=== PATIENT | female | born 1980 | race Asian ===

== ENCOUNTER 2019-03-20 11:05 | Inpatient (IN) | payer OTHER ==
[2019-03-20 12:11] LABS: BASO % 0.2 % (0-2.0); EOS % 0.2 % (0-4.5); HEMATOCRIT 34.2 % (32.4-45.2); HEMOGLOBIN 11.4 GM/dL (10.7-15.3); LYMPH % 10.2 % (8-40); MCH 26.3 pg (25.7-33.7); MCHC 33.3 g/dl (32.0-36.0); MEAN CELL VOLUME 79.2 fl (80-96); MEAN PLT VOLUME 8.7 fl (7.5-11.1); MONO % 5.9 % (3.8-10.2); NEUT % 83.5 % (42.8-82.8); PLATELET COUNT 170 K/MM3 (134-434); RBC 4.33 M/mm3 (3.60-5.2); WHITE BLOOD COUNT 9.2 K/mm3 (4.0-10.0)
[2019-03-20 12:29] LABS: INR 0.91 (0.83-1.09); PROTHROMBIN TIME (PATIENT) 10.7 SEC (9.7-13.0)
[2019-03-20] MEDS: ELECTROLYTE-148 SOLN 1,000 ML IV SCH (12:30)
[2019-03-20 12:32] LABS: ACTIVATED PTT 28.1 SECONDS (25.2-36.5)
[2019-03-20 12:42] LABS: BLOOD UREA NITROGEN 10.2 mg/dL (7-18); CALCIUM 8.5 mg/dL (8.5-10.1); CREATININE 0.5 mg/dL (0.55-1.3)
[2019-03-20] MEDS ORDERED: FENTANYL/BUPIVACAINE/NS/PF - PCEA - 50 ML DISP.SYRIN EP ONE ×3 (12:48→21:07)
[2019-03-20 13:43] VITALS: BMI 20.7
[2019-03-20] MEDS ORDERED: FENTANYL/BUPIVACAINE/NS/PF - PCEA - 50 ML DISP.SYRIN EP SCH (13:45)
[2019-03-20] MEDS ORDERED: NALOXONE HCL 0.4 MG/ML VIAL IVPUSH PRN (13:45)
--- NOTE | 2019-03-20 14:43 | HP ---
Past Medical History - Admission Chief Complaint: labor pain History of Present Illness: none History Source: Patient Limitations to Obtaining History: No Limitations - Past Medical History ORANGE GROWER: No: Alzheimer's, CVA, Dementia, Migraine, Multiple Sclerosis, Peripheral Neuropathy, Parkinson's, Seizure, Syncope, TIA, Vertigo, Other Cardiovascular: No: AFIB, Aneurysm, Aortic Insufficiency, Aortic Stenosis, CAD, CHF, Deep Vein Thrombosis, HTN, Hyperlipdemia, OR, Mitral Insufficiency, Mitral Stenosis, Murmur, Pulmonary Hypertension, Other Pulmonary: No: Asthma, Bronchitis, Cancer, COPD, O2 Dependent, Pneumonia, Previously Intubated, Pulmonary Embolus, Pulmonary Fibrosis, Sleep Apnea, Other Gastrointestinal: No: Ascites, Cancer, Constipation, Crohn's Disease, Diverticulitis, Diverticulosis, Esophageal Varices, Gastritis, GERD, GI Bleed, Hemorrhoids, Hiatal Hernia, Inflamatory Bowel Disease, Irritable Bowel Disease, Pancreatitis, Peptic Ulcer Disease, Ulcerative Colitis, Other Hepatobiliary: No: Cirrhosis, Cholelithiasis, Cholecystitis, Choledocholithiasis , Hepatitis A, Hepatitis B, Hepatitis C, Other Renal/: No: Renal Failure, Renal Inusuff, BPH, Cancer, Hematuria, Hemodialysis , Neurogenic Bladder, Renal Calculi, UTI, Other Reproductive: No: Ectopic , Endometriosis, Fibroids, PID, Polycystic Ovary Syndrome, Postmenopausal, Other ...: 1 ...Para: 0 ...Term: 0 ...: 0 ...Spon : 0 ...Induced : 0 ...Multiple Gestation: 0 ... Weeks Gestation by Dates: 40 ...EDC by Andrew: 03/20/19 Heme/Onc: No: Anemia, B12 Deficiency, Bleeding Disorder, Cancer, Current Chemotherapy, Current Radiation Therapy, Hemochromatosis, Hypercoaguable State, Myeloproliferative Synd, Sickle Cell Disease, Sickle Cell Trait, Thrombocytopenia, Other Infectious Disease: No: AIDS, C-Diff, Herpes Zoster, HIV, MRSA, STD's, Tuberculosis, VREF, Other Psych: No: Addictions, Anxiety, Bipolar, Depression, Panic, Psychosis, Schizophrenia, Other Musculoskeletal: No: Bursitis, Chronic low back pain, Hemiparesis, Hemiplegia, Osteoarthritis, Paraplegia, Other Rheumatology: No: Fibromyalgia, Gout, Lupus, Rheumatoid Arthritis, Sarcoidosis, Vasculitis, Other ENT: No: Allergic Rhinitis, Sinusitis, Other Endocrine: No: Sergey's Disease, Tianna's Disease, Diabetes Insipidus, Diabetes Mellitus, Hyperparathyroidism, Hyperthyroidism, Hypothyroidism, Osteopenia, SIADH, Other Dermatology: No: Basal Cell, Cellulitis, Eczema, Melanoma, Psoriasis, Squamous Cell, Other - Past Surgical History Past Surgical History: No: None, AAA Repair, AICD, Amputation, Appendectomy, Arthrosocopy, AV Fistula/Graft, Bariatric Surgery, Breast Biopsy, Bypass, CABG, Carotid Endarterectomy, Cataract Removal, Cholecystectomy, Colectomy, Colonoscopy, Colostomy, Craniotomy, , Cystectomy, Hernia Repair, Hysterectomy, Ileal Conduit, Ileosotomy, Joint Replacement, Kidney Transplant, Laminectomy, Liver Transplant, Mastectomy, Nephrectomy, Oopherectomy, Orchiectomy, Permanent Pacemaker, Prostatectomy, Splenectomy, Stent, Thoracotomy , TURP, Tonsillectomy, Tubal Ligation, Upper Endoscopy, Valve Replacement, Vasectomy, Vein Stripping/Ligation Hx Myomectomy: No Hx Transabdominal Cerclage: No - Advance Directives Advance Directives: Yes: Living Will - Smoking History Smoking history: Never smoked Have you smoked in the past 12 months: No - Alcohol/Substance Use Hx Alcohol Use: No History of Substance Use: reports: None - Social History Usual Living Arrangement: Yes: With Spouse Do you think of yourself as: Straight/Heterosexual ADL: Independent History of Recent Travel: No Home Medications - Allergies Allergies/Adverse Reactions: Allergies Allergy/AdvReac Type Severity Reaction Status Date / Time No Known Drug Allergies Allergy Verified 03/20/19 12:23 - Home Medications Home Medications: Ambulatory Orders Ferrous Sulfate 65 mg PO DAILY 03/20/19 Tablet 1 tab PO DAILY 03/20/19 Family Medical History Family History: Denies Review of Systems - Review of Systems Constitutional: reports: No Symptoms Eyes: reports: No Symptoms HENT: reports: No Symptoms Neck: reports: No Symptoms Cardiovascular: reports: No Symptoms Respiratory: reports: No Symptoms Gastrointestinal: reports: No Symptoms Genitourinary: reports: No Symptoms Breasts: reports: No Symptoms Reported Musculoskeletal: reports: No Symptoms Integumentary: reports: No Symptoms Neurological: reports: No Symptoms Endocrine: reports: No Symptoms Hematology/Lymphatic: reports: No Symptoms Psychiatric: reports: No Symptoms Physical Exam - Maternity Vital Signs: Vital Signs Temperature 98.4 F 03/20/19 11:05 Pulse Rate 65 03/20/19 13:45 Respiratory Rate 17 03/20/19 13:45 Blood Pressure 114/71 03/20/19 13:45 O2 Sat by Pulse Oximetry (%) 100 03/20/19 13:20 Constitutional: Yes: Well Nourished, No Distress, Calm Eyes: Yes: WNL, Conjunctiva Clear, EOM Intact HENT: Yes: WNL, Atraumatic, Normocephalic Neck: Yes: WNL, Supple, Trachea Midline Cardiovascular: Yes: WNL, Regular Rate and Rhythm Lungs: Clear to auscultation Breast(s): Yes: WNL - Abdominal Exam/OB Fundal Height: 38 Number of Fetuses: Single Presentation: Vertex Contractions: Yes Regularity: Regular Intensity: Mild/Mod Monitor Mode: External Heart Rate [facility]: [facility] Category: I Accelerations: Uniform Decelerations: None - Vaginal Exam/OB Vaginal Bleediing: Yes Speculum Exam: No Dilatation (cm): 3 Effacement (%): 70 Amniotic Membrane Status: Intact Presentation: Vertex/Position Station: -1 - Physical Exam Musculoskeletal: Yes: WNL Extremities: Yes: WNL Edema: No Edema: LUE: 1+, RUE: 1+, LLE: 1+, RLE: 1+ Integumentary: Yes: WNL Deep Tendon Reflex Grade: Normal +2 ...Motor Strength: WNL Psychiatric: Yes: WNL, Alert, Oriented - Labs Lab Results: CBC, BMP 03/20/19 11:50 03/20/19 11:50 Assessment/Plan for sp labor
--- NOTE | 2019-03-20 14:45 | PN ---
Progress Note (short form) - Note Progress Note: 230 pm, 4 cm, aarom, -1, 70%, clear , uc q 3 min , epidural
[2019-03-20] MEDS ORDERED: OXYTOCIN 30 UNITS in 0.9% NS 30 UNIT/500 ML INFUS.BAG IVPB ONE (17:05)
[2019-03-20] MEDS: OXYTOCIN 30 UNITS in 0.9% NS 30 UNIT/500 ML INFUS.BAG IVPB SCH (17:15)
--- NOTE | 2019-03-20 17:18 | PN ---
Progress Note (short form) - Note Progress Note: 440 pm 6 cm ,-1, 80 %, continue laboring and pitocin
[2019-03-20] MEDS ORDERED: BUPIVACAINE HCL/PF 2.5 MG/ML - 30 ML VIAL IJ ONE (18:06)
[2019-03-20] MEDS: FENTANYL/BUPIVACAINE/NS/PF - PCEA - 50 ML DISP.SYRIN EP SCH (18:39)
--- NOTE | 2019-03-20 20:32 | PN ---
Progress Note (short form) - Note Progress Note: 830 pm 9 2, pushing soon, continue pitocin and laboring , nst reactive, uc q 3 min, no decel
[2019-03-20] MEDS ORDERED: OXYTOCIN 20 UNITS in 0.9% NS 20 UNIT/1,000 ML INFUS.BAG IV ONE (23:12)
[2019-03-20] MEDS ORDERED: LIDOCAINE HCL 1% PRESERVATIVE FREE - 30ML VIAL ONE (23:24)
[2019-03-20] MEDS ORDERED: OXYTOCIN 20 UNITS in 0.9% NS 20 UNIT/1,000 ML INFUS.BAG IV SCH (23:45)
[2019-03-20] MEDS ORDERED: BISACODYL 10 MG SUPP.RECT RC PRN (23:55)
[2019-03-20] MEDS ORDERED: METHYLERGONOVINE MALEATE 0.2 MG/1 ML AMP IM PRN (23:55)
[2019-03-20] MEDS ORDERED: BENZOCAINE 28 GM HEMORRHOIDAL OINTMENT TP PRN (23:55)
[2019-03-20] MEDS ORDERED: BENZOCAINE 20% 57 GM BOTTLE TP PRN (23:55)
[2019-03-20] MEDS ORDERED: oxyCODONE HCL 5 MG TABLET PO PRN (23:55)
[2019-03-20] MEDS ORDERED: WITCH HAZEL 50% (TUCKS) 40 PAD/JAR PAD TP PRN (23:55)
--- NOTE | 2019-03-21 00:01 | PN ---
Delivery - Delivery Vaginal Delivery: No Problems Type of Anesthesia: Epidural Episiotomy/Laceration: Right Mediolateral EBL (cc): 200 Delivery, Single - Stages of Labor Date 1st Stage Initiatied: 03/20/19 Date 2nd Stage Initiated: 03/20/19 Date of Delivery: 03/20/19 Date Placenta Delivered: 03/20/19 Placenta: Yes: Spontaneous - Condition of Engineering Clerk/Spice Grinder Present: No Gender: Male Position: Left, OA Total Hours ROM (Hrs/Mins): 9hr 30 min - 1 Minute Total Score: 9 5 Minutes Total Score: 9 - Feeding Plan Initial Plan: Exclusive throughout hospitalization Benefits of Exclusively reinforced: Yes Remarks - Remarks Remarks: pushed well x 1 hr, no complications
[2019-03-21] MEDS: IBUPROFEN 600 MG TABLET (FP) PO PRN ×4 (03:04→21:36)
[2019-03-21] MEDS: ACETAMINOPHEN 325 MG TABLET (FP) PO PRN ×4 (03:05→21:37)
[2019-03-21 08:39] LABS: BASO % 0.2 % (0-2.0); EOS % 0.2 % (0-4.5); HEMATOCRIT 25.2 % (32.4-45.2); HEMOGLOBIN 8.4 GM/dL (10.7-15.3); LYMPH % 6.1 % (8-40); MCH 26.2 pg (25.7-33.7); MCHC 33.2 g/dl (32.0-36.0); MEAN CELL VOLUME 78.9 fl (80-96); MEAN PLT VOLUME 8.6 fl (7.5-11.1); MONO % 5.1 % (3.8-10.2); NEUT % 88.4 % (42.8-82.8); PLATELET COUNT 133 K/MM3 (134-434); RBC 3.19 M/mm3 (3.60-5.2); RDW 17.9 % (11.6-15.6); WHITE BLOOD COUNT 15.9 K/mm3 (4.0-10.0)
[2019-03-21] MEDS: OXYTOCIN 30 UNITS in 0.9% NS 30 UNIT/500 ML INFUS.BAG IVPB SCH (18:14)
[2019-03-21] MEDS: FENTANYL/BUPIVACAINE/NS/PF - PCEA - 50 ML DISP.SYRIN EP SCH (18:14)
[2019-03-21] MEDS: ELECTROLYTE-148 SOLN 1,000 ML IV SCH (18:14)
--- NOTE | 2019-03-21 20:39 | PN ---
Post Progress Note Post Day: 1 Type of Delivery: Vital Signs: Vital Signs Temperature 97.8 F 03/21/19 18:00 Pulse Rate 80 03/21/19 18:00 Respiratory Rate 17 03/21/19 18:00 Blood Pressure 118/74 03/21/19 18:00 O2 Sat by Pulse Oximetry (%) 99 03/21/19 01:15 Breast Exam: Yes: Soft Uterus: Yes: Fundus Firm, Fundus below umbilicus Abdomen/GI: Yes: Abdomen soft, Passing flatus, Tolerating PO Lochia: Yes: Serosa Lochia, amount: Small Extremities: Yes: Calves non-tender Perineum: Yes: Episiotomy Activity: Ambulating (no complications ) - Labs Labs: CBC WBC 15.9 K/mm3 (4.0-10.0) H 03/21/19 08:05 RBC 3.19 M/mm3 (3.60-5.2) L 03/21/19 08:05 Hgb 8.4 GM/dL (10.7-15.3) L 03/21/19 08:05 Hct 25.2 % (32.4-45.2) L D 03/21/19 08:05 MCV 78.9 fl (80-96) L 03/21/19 08:05 MCH 26.2 pg (25.7-33.7) 03/21/19 08:05 MCHC 33.2 g/dl (32.0-36.0) 03/21/19 08:05 RDW 17.9 % (11.6-15.6) H 03/21/19 08:05 Plt Count 133 K/MM3 (134-434) L D 03/21/19 08:05 MPV 8.6 fl (7.5-11.1) 03/21/19 08:05 Absolute Neuts (auto) 14.1 K/mm3 (1.5-8.0) H 03/21/19 08:05 Neutrophils % 88.4 % (42.8-82.8) H 03/21/19 08:05 Lymphocytes % 6.1 % (8-40) L D 03/21/19 08:05 Monocytes % 5.1 % (3.8-10.2) 03/21/19 08:05 Eosinophils % 0.2 % (0-4.5) 03/21/19 08:05 Basophils % 0.2 % (0-2.0) 03/21/19 08:05 Nucleated RBC % 0 % (0-0) 03/21/19 08:05 Assessment/Plan dc pt home tomorrow
--- NOTE | 2019-03-21 20:43 | DS ---
Physical Exam-WELL DIGGER Vital Signs: Vital Signs Temperature 97.8 F 03/21/19 18:00 Pulse Rate 80 03/21/19 18:00 Respiratory Rate 17 03/21/19 18:00 Blood Pressure 118/74 03/21/19 18:00 O2 Sat by Pulse Oximetry (%) 99 03/21/19 01:15 Constitutional: Yes: Well Nourished, No Distress, Calm Eyes: Yes: WNL, Conjunctiva Clear, EOM Intact HENT: Yes: WNL, Atraumatic, Normocephalic Neck: Yes: WNL, Supple, Trachea Midline Cardiovascular: Yes: WNL, Regular Rate and Rhythm Respiratory: Yes: WNL, Regular, CTA Bilaterally Gastrointestinal: Yes: WNL, Normal Bowel Sounds ...Rectal Exam: Yes: WNL Renal/: Yes: WNL Pelvis: Yes: WNL External Genitalia: Yes: Normal Internal Exam Deferred: No Vaginal Exam: Yes: Normal Cervix: Yes: Normal Uterus: Yes: Normal Adnexa: Normal: Bilateral ....Post : Yes: Uterus firm, Uterus non-tender Breast(s): Yes: WNL Musculoskeletal: Yes: WNL Extremities: Yes: WNL Edema: Yes Edema: LUE: 1+, RUE: 1+, LLE: 1+, RLE: 1+ Integumentary: Yes: WNL Wound/Incision: Yes: Clean/Dry, Well Approximated Neurological: Yes: WNL, Alert, Oriented ...Motor Strength: WNL Psychiatric: Yes: WNL, Alert, Oriented Labs: CBC, BMP 03/21/19 08:05 03/20/19 11:50 Delivery - Delivery Vaginal Delivery: No Problems Type of Anesthesia: Local, Epidural Episiotomy/Laceration: Right Mediolateral EBL (cc): 200 Delivery, Single - Stages of Labor Date 1st Stage Initiatied: 03/20/19 Time 1st Stage Initiated: 05:00 Date 2nd Stage Initiated: 03/20/19 Time 2nd Stage Initiated: 22:45 Date of Delivery: 03/20/19 Time of Delivery: 23:27 Time Placenta Delivered: 23:30 Placenta: Yes: Spontaneous - Condition of Building Maintenance Repairer/Incident Response Manager Present: [place]: Izabella Luciano Gender: Male Weight: 2.495 kg Position: Left, OA Total Hours ROM (Hrs/Mins): 9hr 30 min - 1 Minute Total Score: 9 5 Minutes Total Score: 9 - [place] Feeding Plan Initial Plan: Exclusive throughout hospitalization Benefits of Exclusively reinforced: Yes Discharge Summary Problems reviewed: Yes Reason For Visit: LABOR Procedures: Principal: Other Procedures: none Hospital Course: unenventful Health Concerns: none Plan of Treatment: oob as much as possible Condition: Good - Instructions Diet, Activity, Other Instructions: regular diet, routine post care Disposition: HOME - Home Medications Comprehensive Discharge Medication List: Ambulatory Orders Ferrous Sulfate 65 mg PO DAILY 03/20/19 Tablet 1 tab PO DAILY 03/20/19 Prescription Drug Monitoring Program (I-STOP) results: I-STOP reviewed and no issues identified
[2019-03-21] MEDS ORDERED: SENNOSIDES/DOCUSATE COMBO (SENNA PLUS) TABLET (UD) PO PRN (22:00)
[2019-03-22] MEDS: IBUPROFEN 600 MG TABLET (FP) PO PRN (09:18)
[2019-03-22] MEDS: ACETAMINOPHEN 325 MG TABLET (FP) PO PRN (09:19)
[2019-03-22 10:23] VITALS: BP 99/53; PULSE 77; TEMP 97.9
== END 2019-03-22 13:00 | disposition home or self-care (01) | DRG 560 ==
LOC: JLDR 11:05 → J3W 03-21 02:19
PROVIDERS: ADMIT Obstetrics & Gynecology; ATTEND Obstetrics & Gynecology
PROC: 10E0XZZ Delivery of Products of Conception, External Approach (ICD-10-PCS; principal; 2019-03-20)
PROC: 0W8NXZZ Division of Female Perineum, External Approach (ICD-10-PCS; 2019-03-20)
DX: O48.0 Post-term pregnancy (principal); Z3A.40 40 weeks gestation of pregnancy; Z37.0 Single live birth
CPT/HCPCS: 36415; 59409; 80048; 85025; 85610; 85730; 86593; 86850; 86900; 86901; 87389